=== PATIENT | male | born 1995 | race Caucasian/White ===

== ENCOUNTER 2018-04-17 09:44 | Emergency (ER) | payer MEDICAID ==
[~2018-04-17] VITALS: Ht 185.4 cm; Wt 90.7 kg
[2018-04-17 09:50] VITALS: BP 138/84
[2018-04-17] MEDS ORDERED: LIDOCAINE 1% 500 MG/50 ML VIAL INJ SCH ×2 (10:50→11:35)
[2018-04-17] MEDS ORDERED: LORazepam 1 MG TAB PO ONE (10:50)
[2018-04-17] MEDS ORDERED: LIDOCAINE MPF 1% - 5 mL VIAL 5 ML ONE (11:43)
[2018-04-17 12:34] VITALS: BP 140/84
== END 2018-04-17 12:34 ==
LOC: MED 09:44
DX: S61.411A Laceration without foreign body of right hand, initial encounter (principal); W25.XXXA Contact with sharp glass, initial encounter; Y93.89 Activity, other specified; Y92.89 Other specified places as the place of occurrence of the external cause; Y99.8 Other external cause status
CPT/HCPCS: 12001; 73130; 90471; 90715; 99283; J2001; Q0092

== ENCOUNTER 2018-10-31 21:34 | Emergency (ER) | payer MEDICAID, OTHER ==
[~2018-10-31] VITALS: Ht 185.4 cm; Wt 86.2 kg
[2018-10-31 21:39] VITALS: BP 132/90
--- NOTE | 2018-10-31 21:39 | NUR ---
TO BED # 06 AMBULATORY
--- NOTE | 2018-10-31 21:55 | NUR ---
PT C/O OF HEART PALIPITATIONS. PT STATES "I HAVE BEEN STRESSED OUT ABOUT SCHOOL AND COURT AND I JUST DON'T FEEL RIGHT". PT DENIES ANY PAIN AT THIS TIME. NO MEDICAL HX. SAFETY MEASURES IN PLACE. WAITING FOR MD TO EVALUATE PT.
--- NOTE | 2018-10-31 21:59 | NUR ---
Note dennise in EDM - 10/31/18 at 2201 by [email or web address] PT C/O OF HEART PALIPITATIONS. PT STATES "I HAVE BEEN STRESSED OUT ABOUT SCHOOL AND COURT AND I JUST DON'T FEEL RIGHT". PT DENIES ANY PAIN AT THIS TIME. NO MEDICAL HX. SAFETY MEASURES IN PLACE. WAITING FOR MD TO EVALUATE PT.
--- NOTE | 2018-10-31 22:03 | NUR ---
Dr. Franco examining patient.
[2018-10-31] MEDS ORDERED: LORazepam 1 MG TAB PO ONE (22:05)
--- NOTE | 2018-10-31 22:49 | NUR ---
Patient discharged by Dr. Franco with v/s stable. Pain level 0/10 prior to discharge. Written and verbal after care instructions given and explained. Patient verbalized understanding. Ambulatory with steady gait. All questions addressed prior to discharge. Advised to follow up with PMD.
[2018-10-31 22:51] VITALS: BP 132/90
== END 2018-10-31 22:49 | disposition home or self-care (01) ==
LOC: MED 21:34
DX: R06.4 Hyperventilation (principal); F41.1 Generalized anxiety disorder; G40.909 Epilepsy, unspecified, not intractable, without status epilepticus
CPT/HCPCS: 99284

== ENCOUNTER 2019-01-26 09:41 | Emergency (ER) | payer OTHER ==
[~2019-01-26] VITALS: Ht 185.4 cm; Wt 86.2 kg
[2019-01-26 09:55] VITALS: BP 145/93
[2019-01-26] MEDS ORDERED: DIAZEPAM 5 MG TAB PO ONE (10:50)
[2019-01-26 11:34] VITALS: BP 118/73
== END 2019-01-26 11:15 | disposition home or self-care (01) ==
LOC: MED 09:41
DX: M25.512 Pain in left shoulder (principal); G40.909 Epilepsy, unspecified, not intractable, without status epilepticus
CPT/HCPCS: 99283

== ENCOUNTER 2019-02-05 13:52 | Emergency (ER) | payer OTHER ==
[~2019-02-05] VITALS: Ht 182.9 cm; Wt 86.6 kg
[2019-02-05 13:55] VITALS: BP 153/83
--- NOTE | 2019-02-05 14:11 | NUR ---
PT WALKED TO ROOM 6 IN STEADY GAIT. CO PAIN ON LEFT SHOULDER S/P FALL OFF OF SKITING BARD A MONTH AGO. PAIN STILL EVEN TAKING PRESCRIPED MEDICATION. A/OX3. NO ACUTE DISTRESS. VS STABLE
[2019-02-05] MEDS ORDERED: KETOROLAC 30 MG/ML VIAL IM ONE (14:55)
--- NOTE | 2019-02-05 14:59 | NUR ---
order entry technician at bedside.
--- NOTE | 2019-02-05 15:20 | NUR ---
PT WAS MEDICATED WITH TORADOL IM PER MD ORDER.
--- NOTE | 2019-02-05 15:41 | NUR ---
Patient discharged with v/s stable. Written and verbal after care instructions given and explained. Patient alert, oriented and verbalized understanding of instructions. Ambulatory with to home. All questions addressed prior to discharge. ID band removed. Patient advised to follow up with PMD. Rx of FLEXERIL AND IBUPROFEN given. Patient educated on indication of medication including possible reaction and side effects. Opportunity to ask questions provided and answered. F
[2019-02-05 15:42] VITALS: BP 134/75
== END 2019-02-05 15:41 | disposition home or self-care (01) ==
LOC: MED 13:52
DX: M25.512 Pain in left shoulder (principal); G40.909 Epilepsy, unspecified, not intractable, without status epilepticus
CPT/HCPCS: 73030; 96372; 99283; J1885; Q0092

== ENCOUNTER 2019-04-08 19:36 | Emergency (ER) | payer OTHER ==
[~2019-04-08] VITALS: Ht 185.4 cm; Wt 84.0 kg
[2019-04-08 19:55] VITALS: BP 155/99
--- NOTE | 2019-04-08 20:22 | NUR ---
PT TAKEN TO BED 5
--- NOTE | 2019-04-08 20:40 | NUR ---
X-Ray at bedside.
--- NOTE | 2019-04-08 20:49 | NUR ---
XR AT BEDSIDE.
--- NOTE | 2019-04-08 20:57 | NUR ---
KATIE ROBLES AT BEDSIDE TO EVAL PT.
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
[2019-04-08] MEDS: ACETAMINOPHEN EXTRA STRENGTH 500 MG TAB PO ONE (21:05)
[2019-04-08] MEDS ORDERED: BACITRACIN OINT 500 UNITS/GM PKT TP ONE (21:21)
[2019-04-08] MEDS: BACITRACIN OINT 500 UNITS/GM PKT TP ONE (21:22)
[2019-04-08] MEDS: LIDOCAINE MPF 1% 10 MG/ML VIAL INJ ONE (21:24)
--- NOTE | 2019-04-08 21:24 | NUR ---
PULLED LIDOCAINE FOR PA FOR PROCEDURE BUT KATIE ROBLES SAID NOT INDICATED ANYMORE. WASTED LIDOCAINE AT [facility].
[2019-04-08 21:47] VITALS: BP 155/99
--- NOTE | 2019-04-08 21:47 | NUR ---
Patient discharged with v/s stable. Written and verbal after care instructions given and explained. Patient alert, oriented and verbalized understanding of instructions. Ambulatory with steady gait. All questions addressed prior to discharge. ID band removed. Patient advised to follow up with PMD. Rx of IBUPROFEN AND BACITRACIN given. Patient educated on indication of medication including possible reaction and side effects. Opportunity to ask questions provided and answered.
== END 2019-04-08 21:47 | disposition home or self-care (01) ==
LOC: MED 19:36
DX: S61.300A Unspecified open wound of right index finger with damage to nail, initial encounter (principal); S60.221A Contusion of right hand, initial encounter; S60.511A Abrasion of right hand, initial encounter; V00.131A Fall from skateboard, initial encounter; Y93.89 Activity, other specified; Y92.89 Other specified places as the place of occurrence of the external cause; Y99.8 Other external cause status; Z82.0 Family history of epilepsy and other diseases of the nervous system
CPT/HCPCS: 12001; 73130; 99283; J2001; Q0092

== ENCOUNTER 2019-04-28 17:50 | Emergency (ER) | payer OTHER ==
[~2019-04-28] VITALS: Ht 185.4 cm; Wt 65.8 kg
--- NOTE | 2019-04-28 17:50 | NUR ---
PT BIBA BLS TO ER BED 02
[2019-04-28 18:00] VITALS: BP 116/71
[2019-04-28] MEDS ORDERED: MORPHINE SULFATE 4 MG/ML SYR IM ONE (18:40)
[2019-04-28] MEDS ORDERED: KETOROLAC 30 MG/ML VIAL IM ONE (18:40)
--- NOTE | 2019-04-28 18:45 | NUR ---
PT LYING ON BED, A/OX3. CALLING FRIENDS. NO ACUTE DISTRESS. SPEAKS FULL SENTENCES, FOLLOWS COMMAND, DENIES WORRELL. TRIED TO COLLECT URINE SAMPLE. BUT PT HAS NO URINE.
--- NOTE | 2019-04-28 18:56 | NUR ---
PT WAS MEDICATED WITH PAIN MEDICATION PER MD ORDER.
--- NOTE | 2019-04-28 19:46 | NUR ---
PATIENT ALERT AND ORIENTED, BREATHING EVEN AND UNLABORED, WILL CONTINUE TO MONITOR.
--- NOTE | 2019-04-28 20:45 | NUR ---
PATIENT STATES HE IS UNABLE TO PEE AT THIS TIME
--- NOTE | 2019-04-28 21:00 | NUR ---
PER KATIE BARROW PATIENT DOES NOT NEED URINE BEFORE DISCHARGE
--- NOTE | 2019-04-28 21:11 | NUR ---
CLAVICLE SPLINT WAS PLACED ON PT. PTS PMS WNL.
[2019-04-28 21:25] VITALS: BP 108/74
--- NOTE | 2019-04-28 21:25 | NUR ---
Patient discharged with v/s stable. Written and verbal after care instructions ABOUT CLAVICLE FRACTURE given and explained. Patient alert, oriented and verbalized understanding of instructions. Ambulatory with steady gait. All questions addressed prior to discharge. ID band removed. Patient advised to follow up with PMD. Rx of IBUPROFEN AND TRAMADOL given. Patient educated on indication of medication including possible reaction and side effects. Opportunity to ask questions provided and answered.
== END 2019-04-28 21:25 | disposition home or self-care (01) ==
LOC: MED 17:50
DX: S42.002A Fracture of unspecified part of left clavicle, initial encounter for closed fracture (principal); G40.909 Epilepsy, unspecified, not intractable, without status epilepticus; V89.2XXA Person injured in unspecified motor-vehicle accident, traffic, initial encounter; Y93.89 Activity, other specified; Y92.89 Other specified places as the place of occurrence of the external cause; Y99.8 Other external cause status
CPT/HCPCS: 29105; 71045; 73000; 96372; 99283; J1885; J2270; Q0092

== ENCOUNTER 2019-05-01 19:01 | Emergency (ER) | payer OTHER ==
[~2019-05-01] VITALS: Ht 185.4 cm; Wt 86.2 kg
[2019-05-01 19:15] VITALS: BP 105/58
--- NOTE | 2019-05-01 21:53 | NUR ---
PATIENT LEFT WITHOUT BEING SEEN BY DR. PARK. NO FURTHER CARE PROVIDED FOR PATIENT.
== END 2019-05-01 21:53 | disposition left against medical advice (07) ==
LOC: MED 19:01
DX: R10.9 Unspecified abdominal pain (principal); R07.9 Chest pain, unspecified; Z53.21 Procedure and treatment not carried out due to patient leaving prior to being seen by health care provider; V89.2XXA Person injured in unspecified motor-vehicle accident, traffic, initial encounter; Y93.89 Activity, other specified; Y92.410 Unspecified street and highway as the place of occurrence of the external cause; Y99.8 Other external cause status

== ENCOUNTER 2019-05-02 09:27 | Emergency (ER) | payer OTHER ==
[~2019-05-02] VITALS: Ht 185.4 cm; Wt 84.8 kg
--- NOTE | 2019-05-02 09:34 | NUR ---
PT AMBULATED TO BED 11.
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
[2019-05-02 09:38] VITALS: BP 116/65
[2019-05-02] MEDS ORDERED: MORPHINE SULFATE 4 MG/ML SYR IM ONE (09:55)
[2019-05-02 11:32] VITALS: BP 116/65
--- NOTE | 2019-05-02 11:32 | NUR ---
Patient discharged with v/s stable. Written and verbal after care instructions given and explained. Patient alert, oriented and verbalized understanding of instructions. Ambulatory with steady gait. All questions addressed prior to discharge. ID band removed. Patient advised to follow up with PMD. Rx of MOTRIN, NORCO, ATARAX given. Patient educated on indication of medication including possible reaction and side effects. Opportunity to ask questions provided and answered.
== END 2019-05-02 11:32 | disposition home or self-care (01) ==
LOC: MED 09:27
DX: S42.009A Fracture of unspecified part of unspecified clavicle, initial encounter for closed fracture (principal); X58.XXXA Exposure to other specified factors, initial encounter; Y93.89 Activity, other specified; Y92.89 Other specified places as the place of occurrence of the external cause; Y99.8 Other external cause status
CPT/HCPCS: 96372; 99283; J2270

== ENCOUNTER 2019-05-07 20:13 | Emergency (ER) | payer OTHER ==
[~2019-05-07] VITALS: Ht 182.9 cm; Wt 85.7 kg
[2019-05-07 20:32] VITALS: BP 134/71
--- NOTE | 2019-05-07 20:32 | NUR ---
PT TAKEN BACK TO LOBBY
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
[2019-05-07 21:21] VITALS: BP 134/71
--- NOTE | 2019-05-07 21:21 | NUR ---
Patient discharged with v/s stable. Written and verbal after care instructions given ABOUT CLAVICLE FRACTURE and explained. Patient verbalized understanding. Ambulatory with steady gait. All questions addressed prior to discharge. Advised to follow up with PMD. PATIENT TO BE PICKED UP BY FATHER
--- NOTE | 2019-05-07 21:21 | NUR ---
PLACED CLAVICAL STRAP ON PT AND ALSO PLACED A ARM SLING ON PT'S LEFT ARM
== END 2019-05-07 21:21 | disposition home or self-care (01) ==
LOC: MED 20:13
DX: S42.002A Fracture of unspecified part of left clavicle, initial encounter for closed fracture (principal); G40.909 Epilepsy, unspecified, not intractable, without status epilepticus; V89.2XXA Person injured in unspecified motor-vehicle accident, traffic, initial encounter; Y93.89 Activity, other specified; Y92.89 Other specified places as the place of occurrence of the external cause; Y99.8 Other external cause status
CPT/HCPCS: 99282

== ENCOUNTER 2021-01-14 14:47 | Emergency (ER) | payer OTHER, SELFPAY ==
[~2021-01-14] VITALS: Ht 185.4 cm; Wt 87.1 kg
[~2021-01-14 14:47] MED LIST: FOLI1TAB90 PO; LIB25 PO; MULT-405 PO; THIA-34 PO
[2021-01-14 15:02] VITALS: BP 154/109
--- NOTE | 2021-01-14 15:06 | NUR ---
PT TO WAIT IN LOBBY.
--- NOTE | 2021-01-14 15:14 | NUR ---
PT TAKEN TO [place] iD[facility]on
--- NOTE | 2021-01-14 15:17 | NUR ---
DR. LEDEZMA WITH PT FOR FURTHER EVALUATION.
--- NOTE | 2021-01-14 15:30 | NUR ---
PT TAKEN TO RADIOLOGY VIA WHEELCHAIR
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
[2021-01-14] MEDS: KETOROLAC 60 MG/2 ML VIAL IM ONE (15:36)
[2021-01-14] MEDS ORDERED: IBUP-2213 PO (16:11)
[2021-01-14] MEDS ORDERED: ATA25 PO (16:11)
[2021-01-14] MEDS ORDERED: ACET-8386 PO (16:11)
--- NOTE | 2021-01-14 16:30 | NUR ---
PT PLACED IN RIGHT FABRICATED ULNAR GUTTER SPLINT WITH 4" ORTHO GLASS. CMS WNL NEFORE AND AFTER.
[2021-01-14 16:38] VITALS: BP 154/109
--- NOTE | 2021-01-14 16:39 | NUR ---
Patient discharged with v/s stable. Written and verbal after care instructions given and explained. Patient alert, oriented and verbalized understanding of instructions. Ambulatory with steady gait. All questions addressed prior to discharge. ID band removed. Patient advised to follow up with PMD. Rx of NORCO/ATARAX given. Patient educated on indication of medication including possible reaction and side effects. Opportunity to ask questions provided and answered.
== END 2021-01-14 16:39 | disposition home or self-care (01) ==
LOC: MED 14:47
DX: S62.394A Other fracture of fourth metacarpal bone, right hand, initial encounter for closed fracture (principal); F41.9 Anxiety disorder, unspecified; Z79.899 Other long term (current) drug therapy; Z98.890 Other specified postprocedural states; V00.131A Fall from skateboard, initial encounter; Y93.89 Activity, other specified; Y92.89 Other specified places as the place of occurrence of the external cause; Y99.8 Other external cause status
CPT/HCPCS: 29125; 73130; 96372; 99283; J1885

== ENCOUNTER 2021-01-17 05:50 | Inpatient (IN) | payer OTHER, SELFPAY ==
[2021-01-17] VITALS (16 sets, daily range): BP systolic 100–150; BP diastolic 59–120
[~2021-01-17] VITALS: Ht 185.4 cm; Wt 79.8 kg
[~2021-01-17 05:50] MED LIST changes: +ACET-8386 PO; +ATA25 PO; +IBUP-2213 PO
--- NOTE | 2021-01-17 06:03 | NUR ---
TO BED # 02 AMBULATORY
--- NOTE | 2021-01-17 06:10 | NUR ---
SEEN AND EXAMINED BY RADHA WITH ORDERS AND CARRIED OUT.
[2021-01-17] MEDS ORDERED: OLANZapine 5 MG ODT PO ONE (06:15)
--- NOTE | 2021-01-17 06:20 | NUR ---
MEDICATED PER ERMDS ORDER, TOLERATED WELL.
[2021-01-17 06:41] LABS: BARBITURATE, URINE NEGATIVE ng/ml (NEG <=200)
[2021-01-17 06:42] LABS: BENZODIAZEPINE, URINE NEGATIVE ng/mL (NEG <=200); CANNABINOID, URINE POSITIVE ng/mL (NEG <=50); COCAINE, URINE NEGATIVE ng/mL (NEG <=300); OPIATE, URINE POSITIVE ng/mL (NEG <=2000); PHENCYCLIDINE SCREEN,URINE NEGATIVE ng/mL (NEG <=25)
--- NOTE | 2021-01-17 07:23 | NUR ---
RECEIVED REPORT FROM LINAD URIARTE. TRANSFER OF CARE AT THIS TIME.
[2021-01-17] MEDS ORDERED: NACL 0.9% 1,000 ML IV ONE (07:25)
[2021-01-17] MEDS ORDERED: LORazepam 2 MG/ML VIAL IVP ONE ×2 (07:25→10:20)
--- NOTE | 2021-01-17 07:41 | NUR ---
IV ESTABLISHED TO LEFT AC 20G, GOOD BLOOD RETURN, BLOOD COLLECTED, WALKED TO LAB.
--- NOTE | 2021-01-17 07:52 | NUR ---
PT RESTING, HOB LOWERED FOR COMFORT, PLACED ON GAUGE CHECKER, PROVIDED WARM BLANKET, VSS, WILL CONTINUE TO MONITOR.
--- NOTE | 2021-01-17 08:13 | NUR ---
PT STATES +HALLUCINATIONS AND VOICES AROUND HIM. MADE AWARE.
[2021-01-17 08:19] LABS: BASOPHILS # (AUTO) 0.1 K/uL (0.00-0.22); BASOPHILS % (AUTO) 1.1 % (0.0-2.0); EOSINOPHILS % (AUTO) 0.1 % (0.0-4.0); HEMATOCRIT 46.1 % (36-52); LYMPHOCYTES # (AUTO) 0.7 K/uL (2.0-11.5); LYMPHOCYTES % (AUTO) 10.7 % (20.5-51.1); MEAN CORPUSCULAR HEMOGLOBIN 35 pg (27-31); MEAN CORPUSCULAR HGB CONC 35 g/dL (33-37); MEAN CORPUSCULAR VOLUME 100.7 fL (80-94); MONOCYTES # (AUTO) 0.7 K/uL (0.8-1.0); MONOCYTES % (AUTO) 10.2 % (1.7-9.3); NEUTROPHILS % (AUTO) 77.9 % (42.2-75.2); PLATELET COUNT (AUTO) 194 K/uL (140-450); RED BLOOD CELL COUNT(AUTO) 4.58 MIL/uL (4.20-6.10); WHITE BLOOD COUNT (AUTO) 6.4 K/uL (4.8-10.8)
--- NOTE | 2021-01-17 08:21 | NUR ---
DR. ESTEBAN AT PT BEDSIDE FOR FURTHER EVALUATION.
[2021-01-17 08:28] LABS: ALBUMIN 4.3 g/dL (3.4-5.0); ANION GAP 13.3 (8-16); ASPARTATE AMINOTRANSFERASE 36 U/L (15-37); CARBON DIOXIDE 27.6 mmol/L (21-32); CHLORIDE 102 mmol/L (98-107); CREATININE 0.8 mg/dL (0.6-1.3); GFR ARICAN-AMERICAN 153 mL/min (>90); GLUCOSE 95 mg/dL (74-106); SODIUM SERUM 140 mmol/L (136-145); TOTAL BILIRUBIN 0.7 mg/dL (0.0-1.0); UREA NITROGEN, BLOOD 6 mg/dL (7-18)
[2021-01-17] MEDS ORDERED: PHENobarbital 65 MG/ML VIAL IV ONE ×3 (08:30→10:40)
--- NOTE | 2021-01-17 08:34 | NUR ---
PT STATES +HALLUCINATIONS AND VOICES AROUND HIM. MADE AWARE.
--- NOTE | 2021-01-17 08:37 | NUR ---
PT PULLED IV, BLEEDING ON BED AND SHEETS, DIRECT PRESSURE APPLIED, ESTABLISHED NEW IV TO RIGHT AC 20G.
--- NOTE | 2021-01-17 08:40 | NUR ---
DR. ESTEBAN AT PT BEDSIDE FOR FURTHER EVALUATION.
[2021-01-17] MEDS ORDERED: PHENobarbital 130 MG/ML VIAL ONE (08:44)
--- NOTE | 2021-01-17 08:44 | NUR ---
PT AMBULATED TO RESTROOM WITH A STEADY GAIT.
--- NOTE | 2021-01-17 08:47 | NUR ---
PT AMBULATED TO ER BED 2 WITH A STEADY GAIT. SEIZURE PRECAUTIONS IN PLACE.
[2021-01-17 08:59] LABS: ACETAMINOPHEN < 0.5 ug/ml (10-30); POTASSIUM 2.9 mmol/L (3.5-5.1); SALICYLATE < 2.8 mg/dL (2.8-20.0)
[2021-01-17] MEDS ORDERED: NACL 0.9% IV ONE (09:20)
[2021-01-17] MEDS ORDERED: PHENOBARBITAL IV ONE (09:20)
--- NOTE | 2021-01-17 09:41 | NUR ---
DR. ESTEBAN AT PT BEDSIDE FOR FURTHER EVALUATION.
[2021-01-17] MEDS ORDERED: HALOPERIDOL IM 5 MG/ML VIAL IVP ONE (09:45)
--- NOTE | 2021-01-17 09:58 | NUR ---
PT IN BED, AWAKE ALERT, CALM AND COOPERATIVE. VSS, WILL CONTINUE TO MONITOR.
--- NOTE | 2021-01-17 10:08 | NUR ---
MOVED TO ER BED 4
[2021-01-17] MEDS ORDERED: KETAMINE 10 MG/ML UD SYR **ER IVP ONE ×4 (10:15→11:06)
[2021-01-17] MEDS ORDERED: DEXMEDETOMIDINE HCL 400 MCG in NACL 0.9% 96 ML IV STA (10:26)
[2021-01-17] MEDS ORDERED: MIDAZOLAM 5 MG/5 ML VIAL IV ONE (10:50)
[2021-01-17] MEDS ORDERED: MIDAZOLAM 5 MG/1 ML VIAL ONE (10:57)
--- NOTE | 2021-01-17 11:12 | NUR ---
PER DR. ESTEBAN PT TO BE INTUBATED STAT, ORDERED 120MG SUCC IVP, 20MG ETOMIDATE IVP. 1120-RX PULLED, INTUBATION KIT PULLED 1123-PRECEDEX ORDERED FOR PT TO START AT 0.4MCG/KG/HR 1127-SUCC AND ETOMIDATE MEDICATIONS IVP, PT INTUBATED AT 1128. ET TUBE IN 24 AT THE LIP 8 INCH TUBE AND VERIFIED BY MD AND RT. 1130-PROPOFOL DRIP STARTED. 1138-OG TUBE AND ARNOLD IN.
[2021-01-17] MEDS ORDERED: INTUBATION KIT MC ONE (11:14)
[2021-01-17] MEDS ORDERED: SUCCINYLCHOLINE CHLORIDE 200 MG/10 ML VIAL IVP ONE ×2 (11:15→12:00)
[2021-01-17] MEDS ORDERED: ETOMIDATE 20 MG/10 ML VIAL IVP ONE ×2 (11:15→12:00)
[2021-01-17] MEDS ORDERED: PROPOFOL 1000 MG/100 ML PREMIX 100 ML IV ONE (11:15)
[2021-01-17] MEDS ORDERED: fentaNYL citrate 1 MG in NACL 0.9% 80 ML IV STA (11:16)
--- NOTE | 2021-01-17 11:20 | NUR ---
ADMITTING DX: HALLUCINATIONS MEDICATION CARE MANAGER CALLED TO ED-4 FOR INTUBATION FOR AIRWAY PROTECTION
--- NOTE | 2021-01-17 11:25 | NUR ---
USING A GLIDESCOPE PATIENT SUCCESSFULLY INTUBATED BY DR. MARIANNA GARCIA WITH AN ENDOTRACHEAL TUBE #8.0 SECURED AT 24cm TEETH/GUM LINE PLACEMENT CONFIRMATION CO2 DETECTOR (YELLOW); AUSCULTATION BY RADHA TO THE BILATERAL LUNG SCHWAB APEX TO MID GOOD AERATION THROUGHOUT; AUSCULTATION TO ABDOMINAL REGION CHEST XRAY TO FOLLOW
[2021-01-17] MEDS ORDERED: PROPOFOL 200 MG/20 ML VIAL IV ONE (11:27)
--- NOTE | 2021-01-17 11:33 | NUR ---
ENDOTRACHEAL TUBE PLACEMENT CONFIRMED VIA CHEST XRAY BY DR. MARIANNA GARCIA "GOOD PLACEMENT"
[2021-01-17] MEDS ORDERED: MORPHINE SULFATE 2 MG/ML SYR IVP PRN (11:35)
[2021-01-17] MEDS ORDERED: ONDANSETRON 4 MG/2 ML VIAL IVP PRN ×2 (11:35→13:35)
--- NOTE | 2021-01-17 11:35 | NUR ---
PLACED ON A Knowledge Delivery SystemsAPE VENTILATOR PLUGGED INTO RED OUTLET TOLERATING WELL WITHOUT ADVERSE REACTIONS NOTED VENTILATOR SETTINGS: MODE PRVC RATE 16 VT 550ml (7ml/kg IBW) PEEP 5cmH2O FIO2 70% REVIEWED BY DR. MARIANNA ESTEBAN ERMD; ABG AFTER 1 HOUR ON VENTILATOR
--- NOTE | 2021-01-17 11:41 | NUR ---
BOOK COVERER AT [facility] FOR FURTHER EVALUATION.
--- NOTE | 2021-01-17 11:53 | NUR ---
GAVE REPORT TO LINDA MACHADO FOR PENDING ADMISSION TO ICU BED 5.
--- NOTE | 2021-01-17 12:07 | NUR ---
Patient will be admitted to care of DR. MENDEZ. Admited to ICU. Will go to room 5. Belongings list completed. Report to LINDA MACHADO.
--- NOTE | 2021-01-17 12:15 | NUR ---
pt arrived from er
[2021-01-17 12:21] LABS: ANION GAP 15.1 (8-16); CARBON DIOXIDE 23.3 mmol/L (21-32); CREATININE 0.8 mg/dL (0.6-1.3); POTASSIUM 3.4 mmol/L (3.5-5.1)
--- NOTE | 2021-01-17 12:44 | NUR ---
PT'S BROTHER SANJIV MORAN CALLED [phone], NO ANSWER, LEFT MESSAGE TO CALL BACK
[2021-01-17] MEDS ORDERED: MAG SULF 2000 MG/WATER PREMIX 50 ML IV PRN (13:35)
[2021-01-17] MEDS ORDERED: ACETAMINOPHEN 650 MG SUPP RC PRN (13:35)
[2021-01-17] MEDS ORDERED: SODIUM PHOSPHATE 118 ML ENEM RC PRN (13:35)
[2021-01-17] MEDS ORDERED: MAGNESIUM OXIDE 400 MG TAB PO PRN (13:35)
[2021-01-17] MEDS ORDERED: ALUMINUM HYD/MAG/SIMETHICONE 30 ML UDC PO PRN (13:35)
[2021-01-17] MEDS ORDERED: HYDROcodone/APAP 5/325 MG 1 TAB TAB PO PRN ×2 (13:35)
[2021-01-17] MEDS ORDERED: diphenhydrAMINE 50 MG/ML VIAL IVP PRN (13:35)
[2021-01-17] MEDS ORDERED: IPRATROPIUM 0.02% 0.5 MG/2.5 ML NEBU INH PRN (13:35)
[2021-01-17] MEDS ORDERED: ZOLPIDEM 5 MG TAB PO PRN (13:35)
[2021-01-17] MEDS ORDERED: bisacodyL 10 MG SUPP RC PRN (13:35)
[2021-01-17] MEDS ORDERED: LORazepam 2 MG/ML VIAL IVP PRN (13:35)
[2021-01-17] MEDS ORDERED: ALBUTEROL 0.083% 2.5 MG/3 ML NEBU INH PRN (13:35)
[2021-01-17] MEDS ORDERED: DOCUSATE SODIUM 250 MG GELCAP PO PRN (13:35)
[2021-01-17] MEDS ORDERED: guaiFENesin DM 200/20 MG-10 ML 10 ML UDC PO PRN (13:35)
[2021-01-17] MEDS ORDERED: ACETAMINOPHEN 325 MG TAB PO PRN (13:35)
[2021-01-17] MEDS ORDERED: CLONIDINE HYDROCHLORIDE 0.1 MG TAB PO PRN (13:35)
--- NOTE | 2021-01-17 13:45 | NUR ---
DR RICHTER AT BEDSIDE
[2021-01-17] MEDS: PROPOFOL 1000 MG/100 ML PREMIX 100 ML IV PRN ×3 (14:28→21:57)
[2021-01-17] MEDS: MULTIVITAMIN-12 10 ML, THIAMINE 100 MG, FOLIC ACID 1 MG, MAGNESIUM SULFATE 50% 2,000 MG... IV SCH ×5 (14:33)
[2021-01-17] MEDS: LORazepam 2 MG/ML VIAL IVP PRN ×2 (17:03→23:48)
--- NOTE | 2021-01-17 17:03 | NUR ---
PT AGITATED, INTERMITTENTLY THRASHING AROUND IN BED, PRN ATIVAN GIVEN
[2021-01-17] MEDS: POTASSIUM CHLORIDE 10 MEQ TABER PO PRN (17:20)
--- NOTE | 2021-01-17 19:39 | NUR ---
RECIEVED BEDSIDE ENDORSEMENT FROM DAY SHIFT RN, PT LYING IN BED, RASS -3, SR ON MONITOR, VS WNR, AFEBRILE, ETT TO VENT ACPRVC FIO2 30% TV 500 RATE 14 PEEP 5, OGT IN PLACE CLAMPED AND CHECKED FOR PATENTENCY FLUSHED AND CHECKED FOR PLACEMENT, RAC 20 G PIV INFUSING PROPOFOL @ 45MCG/KG/MIN, RFA 18 G PIV INFUSING MULT V @ 100ML/HR, RH 20 G PIV SALINE LOCKED, FC IN PLACE DRAINING VIA GRAVITY, SUICIDE PRECAUTION IN PLACE, PENNY SOFT WRIST RESTRAINTS IN PLACE AND RELEASED TO CHECK FOR INJURY, NO SIGNS OF ACUTE DISTRESS, SAFETY MEASURES IN PLACE, WILL CONTINUE WITH CURRENT POC
--- NOTE | 2021-01-17 22:07 | NUR ---
VAP ORAL CARE GIVEN, REPOSITIONED PT, NO SIGNS OF ACUTE DISTRESS
[2021-01-17] MEDS ORDERED: MULTIVITAMIN-12 10 ML VIAL IV ONE (22:16)
[2021-01-17] MEDS ORDERED: THIAMINE 200 MG/2 ML VIAL ONE (22:17)
[2021-01-17] MEDS ORDERED: FOLIC ACID 5 MG/ML SYR ONE (22:18)
--- NOTE | 2021-01-17 23:48 | NUR ---
PT AGITATED, ADMINISTERED ATIVAN PRN
[2021-01-18] VITALS (28 sets, daily range): BP systolic 76–126; BP diastolic 41–83
[2021-01-18] MEDS: MULTIVITAMIN-12 10 ML, THIAMINE 100 MG, FOLIC ACID 1 MG, MAGNESIUM SULFATE 50% 2,000 MG... IV SCH ×15 (01:09→22:36)
--- NOTE | 2021-01-18 02:13 | NUR ---
VAP ORAL CARE GIVEN, REPOSITIONED PT, NO SIGNS OF ACUTE DISTRESS
--- NOTE | 2021-01-18 04:19 | NUR ---
MORNING CARE PROVIDED, REPOSITIONED PT, VAP ORAL CARE GIVEN, NO SIGNS OF ACUTE DISTRESS
[2021-01-18] MEDS: PROPOFOL 1000 MG/100 ML PREMIX 100 ML IV PRN ×4 (04:59→23:30)
[2021-01-18 05:31] LABS: BASOPHILS % (AUTO) 0.5 % (0.0-2.0); EOSINOPHILS # (AUTO) 0.1 K/uL (0-0.4); EOSINOPHILS % (AUTO) 1.6 % (0.0-4.0); HEMATOCRIT 42.4 % (36-52); HEMOGLOBIN 14.3 g/dL (12.0-18.0); LYMPHOCYTES # (AUTO) 1.6 K/uL (2.0-11.5); LYMPHOCYTES % (AUTO) 19.6 % (20.5-51.1); MEAN CORPUSCULAR HEMOGLOBIN 35 pg (27-31); MEAN CORPUSCULAR HGB CONC 34 g/dL (33-37); MEAN CORPUSCULAR VOLUME 102.9 fL (80-94); MONOCYTES # (AUTO) 1.3 K/uL (0.8-1.0); MONOCYTES % (AUTO) 15.9 % (1.7-9.3); NEUTROPHILS % (AUTO) 62.4 % (42.2-75.2); PLATELET COUNT (AUTO) 161 K/uL (140-450); RED BLOOD CELL COUNT(AUTO) 4.12 MIL/uL (4.20-6.10); RED CELL DISTRIBUTION WIDTH 13.3 % (11.6-13.7); WHITE BLOOD COUNT (AUTO) 8.1 K/uL (4.8-10.8)
[2021-01-18 06:40] LABS: ALBUMIN 3.4 g/dL (3.4-5.0); CARBON DIOXIDE 27.1 mmol/L (21-32); CREATININE 0.7 mg/dL (0.6-1.3); MAGNESIUM 2.6 mg/dL (1.8-2.4); PHOSPHORUS 3.8 mg/dL (2.5-4.9); POTASSIUM 3.1 mmol/L (3.5-5.1); TOTAL BILIRUBIN 0.5 mg/dL (0.0-1.0)
[2021-01-18] MEDS: POTASSIUM CHLORIDE 10 MEQ TABER PO PRN (06:49)
--- NOTE | 2021-01-18 06:57 | NUR ---
K 3.1, ADMINISTERED K DUR PRN
--- NOTE | 2021-01-18 07:18 | NUR ---
ENDORSED TO DAY SHIFT RN FOR CONTINUITY OF CARE
--- NOTE | 2021-01-18 07:30 | NUR ---
RECIEVED BEDSIDE ENDORSEMENT FROM MORNING NANNY RN, PT LYING IN BED, RASS -3, SR ON MONITOR, VS WNR, AFEBRILE, ETT TO VENT ACPRVC FIO2 25% TV 500 RATE 14 PEEP 5, RESP EVEN WITH BILAT CHEST RISE AND FALL, SKIN WARM DRY COLOR WNL, CAP REFILL <3, OGT IN PLACE CLAMPED AND CHECKED FOR PATENTENCY FLUSHED AND CHECKED FOR PLACEMENT, RAC 20 G PIV INFUSING PROPOFOL @ 45MCG/KG/MIN, RFA 18 G PIV INFUSING MULT V @ 100ML/HR, RH 20 G PIV SALINE LOCKED, FC IN PLACE DRAINING VIA GRAVITY, SEIZURE PRECAUTION IN PLACE, PENNY SOFT WRIST RESTRAINTS IN PLACE AND RELEASED TO CHECK FOR INJURY, NO SIGNS OF ACUTE DISTRESS, SAFETY MEASURES IN PLACE, WILL CONTINUE WITH CURRENT POC. DRY WT 79KG
[2021-01-18] MEDS: LORazepam 2 MG/ML VIAL IVP PRN ×2 (08:12→17:44)
--- NOTE | 2021-01-18 08:12 | NUR ---
PT AGITATED, TRYING TO SIT UP, PRN ATIVAN GIVEN
[2021-01-18] MEDS: MORPHINE SULFATE 2 MG/ML SYR IVP PRN ×2 (08:55→23:21)
[2021-01-18] MEDS: ENOXAPARIN 40 MG/0.4 ML SYR SUBQ SCH (08:56)
[2021-01-18] MEDS: PANTOPRAZOLE 40 MG INJ VIAL IVP SCH (08:56)
--- NOTE | 2021-01-18 09:11 | NUR ---
PATIENT HAS BEEN SCREENED AND CATEGORIZED HIGH NUTRITION RISK. PATIENT WILL BE SEEN WITHIN 1-2 DAYS OF ADMISSION. 01/18/[address]
--- NOTE | 2021-01-18 10:07 | NUR ---
DR RICHTER AT BEDSIDE
[2021-01-18] MEDS: DEXMEDETOMIDINE HCL 400 MCG in NACL 0.9% 96 ML IV PRN (11:54)
--- NOTE | 2021-01-18 11:55 | NUR ---
PRECEDEX DRIP STARTED PER ORDER
--- NOTE | 2021-01-18 13:50 | NUR ---
01/18/21 RD INITIAL ASSESSMENT COMPLETED PLEASE REFER TO NUTRITION ASSESSMENT UNDER CARE ACTIVITY FOR ESTIMATED NUTRITIONAL NEEDS. 1. RECOMMEND JEVITY 1.2 @ 70 ML/HR; START AT 30 ML/HR ADVANCE BY 10 ML/HR Q4H -THIS WILL PROVIDE 2016 KCAL/DAY AND 93 GM OF PROTEIN/DAY 2. RECOMMEND FREE WATER FLUSH OF 50 ML Q4H 3. IF/WHEN PT IS EXTUBATED, RECOMMEND SWALLOW EVALUATION TO ADVANCE TO PO DIET 4. RD TO FOLLOW-UP 2-3 DAYS, HIGH RISK MELINDA MOORE RD
--- NOTE | 2021-01-18 15:40 | NUR ---
DC PLANN[age] YRS OLD MALE PATIENT WAS ADMITTED FROM HOME WITH A DX OF ALCOHOL WITHDRAWAL. PT HAS A HX OF ALCOHOL ABUSE. PT INTUBATED DUE TO SEVER DELIRIUM TREMENS ON PRECEDEX DRIP. CONSULTED WITH PULMO. DC PLAN PER PT RESPOND TO THE TREATMENT.
--- NOTE | 2021-01-18 15:50 | NUR ---
PT QUIET SEDATED TO RASS -3, NO DISTRESS NOTED
[2021-01-18 16:06] LABS: CREATINE KINASE MB 16.9 ng/mL (0-3.6)
--- NOTE | 2021-01-18 17:42 | NUR ---
PT NOT IN ANY DISTRESS AT THIS TIME. ETT SECURE WITH A PATENT AIRWAY. VENT ALARMS ON AND FUNCTIONING.
--- NOTE | 2021-01-18 17:54 | NUR ---
PT AGITATED AFTER POSITION CHANGE AND PM CARE, ATIVAN GIVEN PER ORDER
--- NOTE | 2021-01-18 19:15 | NUR ---
RECEIVED PATIENT FROM AM SHIFT NURSE. PATIENT AWAKE AND AGITATED. ETT TO VENT. RESPIRATIONS EVEN, UNLABORED. NO S/S RESPIRATORY DISTRESS. OGT NOTED. S1/S2 AUSCULTATED. FLACC 0. BILATERAL WRIST RESTRAINTS IN PLACE. NO INJURY TO PATIENT. SKIN WARM, DRY. IV SITE TO RIGHT AC 20G PATENT/INTACT, INFUSING PROPOFOL AND PRECEDEX. IV SITE TO RIGHT FOREARM 18G PATENT/INTACT, INFUSING FLUIDS WELL. SALINE LOCK TO RIGHT HAND 20G PATENT/INTACT. ABDOMEN SOFT, NONTENDER, NONDISTENDED. BOWEL SOUNDS ACTIVE x4 QUADRANTS. PATIENT STARTED ON ENTERAL FEEDING. ARNOLD CATHETER PATENT WITH GREEN URINE DRAINING TO GRAVITY. PLAN OF CARE DISCUSSED. SAFETY PRECAUTIONS IN PLACE.
--- NOTE | 2021-01-18 19:47 | NUR ---
PT RECEIVED ON PRVC 500 +5 f14 25% W/ 8 ETT SECURED @ 24CM VENT IS PLUGGED INTO RED OUTLET W/ ALARMS ON AND AUDIBLE AND AMBU AT BEDSIDE WILL CONTINUE TO MONITOR
--- NOTE | 2021-01-18 21:30 | NUR ---
DUE MEDS GIVEN. NO S/S RESPIRATORY DISTRESS. FLACC 0. PATIENT CLEAN/DRY.
[2021-01-18] MEDS ORDERED: THIAMINE 200 MG/2 ML VIAL ONE (21:42)
[2021-01-18] MEDS ORDERED: MULTIVITAMIN-12 10 ML VIAL IV ONE (21:42)
[2021-01-18] MEDS ORDERED: FOLIC ACID 5 MG/ML SYR ONE (21:42)
--- NOTE | 2021-01-18 23:30 | NUR ---
PATIENT IS EXTREMELY AGITATED AND ATTEMPTING TO PULL OUT ETT. TITRATED MEDICATION ORDERED. NO S/S RESPIRATORY DISTRESS. PATIENT CLEAN/DRY. SAFETY PRECAUTIONS IN PLACE. CLOSE MONITORING BY ALL STAFF.
[2021-01-19] VITALS (31 sets, daily range): BP systolic 98–138; BP diastolic 58–96
--- NOTE | 2021-01-19 01:00 | NUR ---
VAP ORAL CARE RENDERED.
--- NOTE | 2021-01-19 03:45 | NUR ---
PATIENT TURNED AND REPOSITIONED. NO S/S RESPIRATORY DISTRESS. FLACC 0. PATIENT CLEAN/DRY. SAFETY PRECAUTIONS IN PLACE.
[2021-01-19] MEDS: PROPOFOL 1000 MG/100 ML PREMIX 100 ML IV PRN ×2 (04:40→20:06)
--- NOTE | 2021-01-19 05:22 | NUR ---
ALL NEEDS ANTICIPATED AND MET. PATIENT RESTING COMFORTABLY IN BED. NO S/S RESPIRATORY DISTRESS. FLACC 0. PATIENT CLEAN/DRY.
[2021-01-19 06:09] LABS: BASOPHILS % (AUTO) 0.4 % (0.0-2.0); EOSINOPHILS # (AUTO) 0.1 K/uL (0-0.4); HEMATOCRIT 39.6 % (36-52); HEMOGLOBIN 13.5 g/dL (12.0-18.0); LYMPHOCYTES # (AUTO) 1.1 K/uL (2.0-11.5); LYMPHOCYTES % (AUTO) 10.1 % (20.5-51.1); MEAN CORPUSCULAR HEMOGLOBIN 35 pg (27-31); MEAN CORPUSCULAR HGB CONC 34 g/dL (33-37); MEAN CORPUSCULAR VOLUME 102.4 fL (80-94); MONOCYTES # (AUTO) 1.3 K/uL (0.8-1.0); MONOCYTES % (AUTO) 11.7 % (1.7-9.3); NEUTROPHILS # (AUTO) 8.3 K/uL (1.8-7.7); NEUTROPHILS % (AUTO) 76.8 % (42.2-75.2); PLATELET COUNT (AUTO) 150 K/uL (140-450); RED BLOOD CELL COUNT(AUTO) 3.86 MIL/uL (4.20-6.10); RED CELL DISTRIBUTION WIDTH 13.1 % (11.6-13.7); WHITE BLOOD COUNT (AUTO) 10.8 K/uL (4.8-10.8)
[2021-01-19 06:12] LABS: ANION GAP 12.2 (8-16); CARBON DIOXIDE 26.5 mmol/L (21-32); CREATININE 0.8 mg/dL (0.6-1.3); POTASSIUM 3.7 mmol/L (3.5-5.1); TOTAL BILIRUBIN 0.5 mg/dL (0.0-1.0)
--- NOTE | 2021-01-19 07:27 | NUR ---
ENDORSED TO AM SHIFT NURSE FOR CONTINUITY OF CARE.
[2021-01-19] MEDS: LORazepam 2 MG/ML VIAL IVP PRN ×2 (08:09→20:53)
[2021-01-19] MEDS: ENOXAPARIN 40 MG/0.4 ML SYR SUBQ SCH (08:14)
[2021-01-19] MEDS: PANTOPRAZOLE 40 MG INJ VIAL IVP SCH (08:15)
--- NOTE | 2021-01-19 09:51 | NUR ---
BEDSIDE STATES FOR PT TO STAY SEDATED AND WILL GO DAY BY DAY BASIS ON PT QUALIFYING FOR SBT. AT THIS TIME TO KEEP ON PRVC.
--- NOTE | 2021-01-19 10:00 | NUR ---
NEELAM MCNAMARA AT BED SIDE, ORDER RECEIVED. STATE THAT PT. IS NOT READY TO INTUBATE YET AT YHIS TIME.
--- NOTE | 2021-01-19 10:15 | NUR ---
DR. SANFORD AT BED SIDE NO ORDER RECEIVED.
[2021-01-19] MEDS: DEXMEDETOMIDINE HCL 400 MCG in NACL 0.9% 96 ML IV PRN ×2 (11:54→21:45)
--- NOTE | 2021-01-19 16:46 | NUR ---
PT REMAINS ON DOCUMENTED VENT SETTINGS. PT NOT IN ANY DISTRESS AT THIS TIME. ETT IS SECURE WITH A PATENT AIRWAY. VENT ALARMS ON AND FUNCTIONING.
--- NOTE | 2021-01-19 17:30 | NUR ---
PT AWAKE GETTING AGITATED BECAME COMBATIVE TRY TO HIT THE STAFFS ATIVAN GAVE ORDER.ED AND INCREASED PROPOFOL AND PRECEDEX PROTOCAL,
--- NOTE | 2021-01-19 19:30 | NUR ---
REECEIVED PATIENT ON BED WITH HOB ELEVATED TO 30 DEGREE, ORALLY INTUBATED AND VENTILATED AT 25 % FIO2; SEDATED WITH PROPOFOL DRIP AT 35 MCG/KG/MIN AND WITH PRECEDEX DRIP AT 1 MCG/KG/HR VIA G20 IV CANNULA ON RIGHT AC, TO KEEP RASS-3. AND WITH IV BANANA BAG AT 100 ML/HR VIA G20 IV CANNULA ON RIGHT HAND; INTACT. ABDOMEN IS SOFT, HYPOACTIVE BOWEL SOUNDS; WITH CONTINOUS TUBE FEEDING JEVITY 1.2 AT 30 ML/HR VIA OGT; TOLERATED. WITH ARNOLD CATH IN SITU TO GRAVITY DRAINAGE BAG DRAINING CLEAR YELLOW URINE OUTPUT; PATENT AND INTACT.
--- NOTE | 2021-01-19 19:30 | NUR ---
PT. SLEEPING , REPORT GIVE TO LANE MCKEON.
--- NOTE | 2021-01-19 20:30 | NUR ---
TURNED AND REPOSITIONED PATIENT.
--- NOTE | 2021-01-19 21:41 | NUR ---
PT RECEIVED ON PRVC 500 +5 f14 25% W/ 8.0 ETT SECURED VENT IS PLUGGED INTO RED OUTLET W/ ALARMS ON AND AUDIBLE WILL CONTINUE TO MONITOR AMBU IS AT BEDSIDE
--- NOTE | 2021-01-19 23:00 | NUR ---
RESTLESS AND COMBATIVE AT TIMES WHENEVER HE WOKES UP
[2021-01-20] VITALS (18 sets, daily range): BP systolic 111–156; BP diastolic 64–99
--- NOTE | 2021-01-20 00:26 | NUR ---
ETT RETRACTED TO 23 CM PER XRAY INTERP PENDING CXR FOR TUBE PLACEMENT
[2021-01-20] MEDS: DEXMEDETOMIDINE HCL 400 MCG in NACL 0.9% 96 ML IV PRN (02:39)
[2021-01-20] MEDS: LORazepam 2 MG/ML VIAL IVP PRN ×2 (02:40→09:52)
[2021-01-20] MEDS: PROPOFOL 1000 MG/100 ML PREMIX 100 ML IV PRN (02:41)
[2021-01-20 06:12] LABS: BASOPHILS % (AUTO) 0.4 % (0.0-2.0); EOSINOPHILS # (AUTO) 0.1 K/uL (0-0.4); HEMATOCRIT 42.5 % (36-52); HEMOGLOBIN 14.2 g/dL (12.0-18.0); LYMPHOCYTES # (AUTO) 0.8 K/uL (2.0-11.5); LYMPHOCYTES % (AUTO) 10.6 % (20.5-51.1); MEAN CORPUSCULAR HEMOGLOBIN 35 pg (27-31); MEAN CORPUSCULAR HGB CONC 33 g/dL (33-37); MEAN CORPUSCULAR VOLUME 103.7 fL (80-94); MONOCYTES # (AUTO) 0.9 K/uL (0.8-1.0); MONOCYTES % (AUTO) 12.3 % (1.7-9.3); NEUTROPHILS # (AUTO) 5.4 K/uL (1.8-7.7); NEUTROPHILS % (AUTO) 75.7 % (42.2-75.2); PLATELET COUNT (AUTO) 148 K/uL (140-450); RED CELL DISTRIBUTION WIDTH 13.5 % (11.6-13.7); WHITE BLOOD COUNT (AUTO) 7.2 K/uL (4.8-10.8)
[2021-01-20 06:29] LABS: ALBUMIN 2.7 g/dL (3.4-5.0); ANION GAP 11.2 (8-16); CREATININE 0.8 mg/dL (0.6-1.3); POTASSIUM 3.2 mmol/L (3.5-5.1); TOTAL BILIRUBIN 0.3 mg/dL (0.0-1.0)
[2021-01-20] MEDS: MORPHINE SULFATE 2 MG/ML SYR IVP PRN (06:57)
--- NOTE | 2021-01-20 07:30 | NUR ---
ENDORSED TO AM SHIFT RN FOR CONTINUITY OF CARE
--- NOTE | 2021-01-20 07:30 | NUR ---
RECEIVE REPORT FROM LANE INBED HOB UP 30 DEGREE ETT TO VENT ACPC FIO2 25% [id number] PEEP OF 5 O2 SAT99% IV ON RT ARM INFUSSING BABANA BAG AT 100ML/HR ARNOLD CATH DRAIN TORITO GARCIA,
[2021-01-20] MEDS: PANTOPRAZOLE 40 MG INJ VIAL IVP SCH (08:03)
[2021-01-20] MEDS: ENOXAPARIN 40 MG/0.4 ML SYR SUBQ SCH (08:04)
--- NOTE | 2021-01-20 09:30 | NUR ---
SEEN BY DR. SANFORD NO ORDER RECEIVED.
--- NOTE | 2021-01-20 10:20 | NUR ---
1020 DR. RICHTER AT BEDSIDE ,ORDER TO EXTUBATE , CALL RT TO ATTEN.
--- NOTE | 2021-01-20 10:30 | NUR ---
MD QUINN AT BEDSIDE WANTS PATIENT EXTUBATED NOW. LINDA SEWELL AT BEDSIDE. WILL FOLLOW WITH ORDER.
--- NOTE | 2021-01-20 10:35 | NUR ---
PT EXTUBATED . LINDA SEWELL AND MD RICHTER AT BEDSIDE. PLACED PT ON 2L NC. SPO2 98%. VENTILATOR AT BEDSIDE STAND BY, NO STRIDOR. WILL CONTINUE TO MONITOR PATIENT.
[2021-01-20] MEDS ORDERED: LORazepam 2 MG/ML VIAL IVP PRN (10:50)
--- NOTE | 2021-01-20 11:20 | NUR ---
PT AWAKE AND ALERT COOPERATIVE AND FOLLOW COMMAND. SOFT WRIST RESTRAIN D/C BY DR. QUINN.
--- NOTE | 2021-01-20 11:25 | NUR ---
SEEN BY DR LIU , NO NEW ORDERED RECEIVED
[2021-01-20] MEDS: chlordiazePOXIDE 25 MG CAP PO SCH ×2 (12:06→16:13)
[2021-01-20] MEDS: MULTIVITAMIN-12 10 ML, THIAMINE 100 MG, FOLIC ACID 1 MG, MAGNESIUM SULFATE 50% 2,000 MG... IV SCH ×5 (13:15)
--- NOTE | 2021-01-20 14:00 | NUR ---
01/20/21 RD FOLLOW UP COMPLETED PLEASE REFER TO NUTRITION ASSESSMENT UNDER CARE ACTIVITY FOR ESTIMATED NUTRITIONAL NEEDS. 1. RECOMMEND SWALLOW EVALUATION TO ADVANCE TO PO DIET 2. RECOMMEND ENSURE BID FOR ADDITIONAL PROTEIN AND KCAL 3. RD TO FOLLOW-UP 2-3 DAYS, HIGH RISK MELINDA MOORE, RD
--- NOTE | 2021-01-20 16:58 | NUR ---
PT. DOING WELL NO SIGN OF ANXIETY , ORAL CLEAR LIQUID TAKING WELL.
--- NOTE | 2021-01-20 17:51 | NUR ---
PT WAS SEEN FOR DYSPHAGIA. PT WAS ABLE TO SAFELY SWALLOW MS DIET WITH THIN LIQUID WITHOUT S/S OF ASPIRATION.NEEDED VERBAL CUES TO EAT SLOW. RECOMMENDATION MS DIET WITH THIN LIQUID Addendum: 01/20/[address] PT WAS ABLE SAFELY SWALLOW REGULAR DIET. RECOMMENDATION REGULAR DIET WITH THIN LIQUID
--- NOTE | 2021-01-20 18:34 | NUR ---
SOFT DIET TAKEN WELL NO SIGN OF ANXIETY NOTE.
--- NOTE | 2021-01-20 19:30 | NUR ---
[facility], REPORT GIVE TO MAYNOR MCKEON.
--- NOTE | 2021-01-20 19:31 | NUR ---
RECEIVED REPORT FROM DONATO MCKEON FOR CONTINUITY OF CARE. PT IN BED RESTING AND EATING WITH HOB ELEVATED. PT AOX4 AND ABLE TO MAKE NEEDS KNOWN. RESPIRATIONS EVEN AND UNLABORED TO ROOM AIR. ABDOMEN IS SOFT AND NON-TENDER, ACTIVE BOWEL SOUNDS NOTED. SKIN IS WARM, DRY, AND INTACT. IV ACCESS PATENT AND INTACT, BANANA BAG INFUSING WELL. PT CURRENTLY ON PRECEDEX 0.1 MCG/KG/HR. PT DENIES ANY PAIN OR DISCOMFORT AT THIS TIME. NO REQUESTS MADE. POC DISCUSSED. SAFETY MEASURES IN PLACE. WILL CONTINUE TO MONITOR.
--- NOTE | 2021-01-20 20:00 | NUR ---
VS STABLE. PT CALM AND AWAKE. PRECEDEX DRIP STOPPED. PT DENIES ANY PAIN OR DISCOMFORT AT THIS TIME. NO REQUESTS MADE. WILL CONTINUE TO MONITOR.
--- NOTE | 2021-01-20 22:25 | NUR ---
PT PROVIDED WITH SNACK AND TOOTHBRUSH REQUESTED. PT ABLE TO EAT AND WASH HIMSELF. WILL CONTINUE TO MONITOR.
[2021-01-21] VITALS (8 sets, daily range): BP systolic 102–144; BP diastolic 60–95
--- NOTE | 2021-01-21 00:16 | NUR ---
VS STABLE. PT RESTING IN BED, WATCHING TV. NO COMPLAINTS MADE AT THIS TIME. PT KEPT COMFORTABLE. CALL LIGHT WITHIN REACH, WILL CONTINUE TO MONITOR.
--- NOTE | 2021-01-21 01:56 | NUR ---
PT ASLEEP. VISIBLE CHEST RISE AND FALL NOTED. NO S/SX OF DISTRESS NOTED. SPO2 99%. SAFETY MEASURES IN PLACE. WILL CONTINUE TO MONITOR.
--- NOTE | 2021-01-21 04:12 | NUR ---
VS STABLE. PT ASSISTED TO COMMODE AND BACK TO BED SAFELY. PT DENIES ANY PAIN OR DISCOMFORT AT THIS TIME. NO REQUESTS MADE AT THIS TIME. WILL CONTINUE TO MONITOR.
--- NOTE | 2021-01-21 07:24 | NUR ---
GAVE REPORT TO IAN MCKEON FOR CONTINUITY OF CARE
--- NOTE | 2021-01-21 07:25 | NUR ---
RECEIVED BEDSIDE REPORT FROM TOOL MAKER APPRENTICE NURSE MANYOR RN, PT [id number], AWAKE ALERT ABLE TO LET NEEDS KNOWN, IV TO R FA 22G PATENT INTACT SL, R HAND 20G PATENT INTACT SL. PT TOOK OUT IV TO R AC 20G. PT ON ROOM AIR, NO SOB NOTED, SATURATING @ 99%. PT STATED WANTS TO GO HOME, NOTIFY PT TO WAIT FOR DR. INITIAL ASSESSMENT DONE, ALL SAFETY PRECAUTION MET, CALL LIGHT WITHIN REACH, WILL CONTINUE TO MONITOR.
--- NOTE | 2021-01-21 08:17 | NUR ---
PATIENT STATED WANTS TO LEAVE, HE DOES NOT WANT TO WAIT FOR THE DR. HE SAID THE DR SHOULD BE HERE ALREADY, HE DOES NOT WANT TO WAIT, REQUESTED TO TAKE THE IVS OUT, IV TAKEN OUT. PT ALERT ORIENTED X4. AMA FORM SIGNED, PT STATED DOES NOT WANT TO WAIT, WILL FINISH HIS MORNING BREAKFAST AND REQUEST TO LEAVE RIGHT AWAY.
--- NOTE | 2021-01-21 08:36 | NUR ---
PATIENT LEFT UNIT IN STABLE CONDITION, NO DISTRESS NOTED.
--- NOTE | 2021-01-21 08:50 | NUR ---
CALLED PT BROTHER REGARDING PT AMA, NO ANSWER, LEFT MESSAGE.
--- NOTE | 2021-01-21 08:56 | NUR ---
CALLED PT REGARDING MEDICATION IN PHARMACY, PER PT HE DOES NOT WANT TO TAKE IT BACK HOME, HE DOES NOT NEED THE MEDICATIONS.
--- NOTE | 2021-01-21 08:56 | NUR ---
DR ROBLES CALLED, NOTIFIED PT HAS LEFT AMA.
== END 2021-01-21 09:51 | disposition left against medical advice (07) | DRG 133 ==
LOC: MED 05:50 → MIC 11:37
PROVIDERS: ADMIT Hospitalist; ATTEND Hospitalist
PROC: 5A1945Z Respiratory Ventilation, 24-96 Consecutive Hours (ICD-10-PCS; principal; 2021-01-19)
PROC: 0BH17EZ Insertion of Endotracheal Airway into Trachea, Via Natural or Artificial Opening (ICD-10-PCS; 2021-01-19)
DX: J96.00 Acute respiratory failure, unspecified whether with hypoxia or hypercapnia (principal); J69.0 Pneumonitis due to inhalation of food and vomit; G93.40 Encephalopathy, unspecified; F10.231 Alcohol dependence with withdrawal delirium; E87.6 Hypokalemia; R44.0 Auditory hallucinations; E83.42 Hypomagnesemia; Z20.822 Contact with and (suspected) exposure to COVID-19; Z79.899 Other long term (current) drug therapy
CPT/HCPCS: 31500; 36415; 36600; 71045; 80048; 80053; 80305; 82140; 82550; 82553; 82803; 83735; 84100; 84484; 85025; 85610; 85730; 87081; 92610; 93005; 94002; 94003; 96361; 96365; 96375; 99291; A9153; C9113; G0480; G0482; J0330; J1200; J1630; J1650; J2060; J2250; J2270; J2405; J2560; J2704; J3010; J3411; J3475; J3490; Q0092

== ENCOUNTER 2021-04-08 10:54 | Inpatient (IN) | payer OTHER, SELFPAY ==
[~2021-04-08] VITALS: Ht 180.3 cm; Wt 78.5 kg
[2021-04-08 11:11] VITALS: BP 146/108
--- NOTE | 2021-04-08 11:16 | NUR ---
Patient ambulated with steady gait to bed 1.
[2021-04-08] MEDS ORDERED: NACL 0.9% 1,000 ML IV ONE (11:35)
[2021-04-08] MEDS ORDERED: LORazepam 2 MG/ML VIAL IVP ONE ×2 (11:35→13:15)
--- NOTE | 2021-04-08 11:41 | NUR ---
26 YEARS OLD MALE WITH HX OF ETOH,ANXIETY PRESENTS TO ER WITH COUGH FOR 1 WEEK DENIES NAUSEA VOMITING DIARRHEA.
[2021-04-08 12:04] LABS: BASOPHILS % (AUTO) 0.4 % (0.0-2.0); EOSINOPHILS % (AUTO) 0.1 % (0.0-4.0); HEMATOCRIT 44.4 % (36-52); HEMOGLOBIN 15.6 g/dL (12.0-18.0); LYMPHOCYTES # (AUTO) 0.7 K/uL (2.0-11.5); LYMPHOCYTES % (AUTO) 7.2 % (20.5-51.1); MEAN CORPUSCULAR HEMOGLOBIN 34 pg (27-31); MEAN CORPUSCULAR HGB CONC 35 g/dL (33-37); MEAN CORPUSCULAR VOLUME 97.6 fL (80-94); MONOCYTES # (AUTO) 1.3 K/uL (0.8-1.0); MONOCYTES % (AUTO) 13.3 % (1.7-9.3); NEUTROPHILS # (AUTO) 7.9 K/uL (1.8-7.7); PLATELET COUNT (AUTO) 153 K/uL (140-450); RED BLOOD CELL COUNT(AUTO) 4.55 MIL/uL (4.20-6.10); RED CELL DISTRIBUTION WIDTH 13.1 % (11.6-13.7)
[2021-04-08 12:18] LABS: ALBUMIN 3.8 g/dL (3.4-5.0); ANION GAP 13.8 (8-16); CARBON DIOXIDE 27.8 mmol/L (21-32); CREATININE 0.7 mg/dL (0.6-1.3); POTASSIUM 3.6 mmol/L (3.5-5.1); TOTAL BILIRUBIN 0.6 mg/dL (0.0-1.0)
[2021-04-08 12:19] LABS: BARBITURATE, URINE NEGATIVE ng/ml (NEG <=200); BENZODIAZEPINE, URINE NEGATIVE ng/mL (NEG <=200); CANNABINOID, URINE NEGATIVE ng/mL (NEG <=50); COCAINE, URINE NEGATIVE ng/mL (NEG <=300); OPIATE, URINE NEGATIVE ng/mL (NEG <=2000); PHENCYCLIDINE SCREEN,URINE NEGATIVE ng/mL (NEG <=25)
--- NOTE | 2021-04-08 13:23 | NUR ---
PATIENT VERY ANXIOUS,SWEATY, TACHY DR PIEDRA NOTIFIED.
[2021-04-08] MEDS ORDERED: ACETAMINOPHEN 325 MG TAB PO PRN (13:50)
[2021-04-08] MEDS ORDERED: ONDANSETRON 4 MG/2 ML VIAL IVP PRN (13:50)
[2021-04-08] MEDS ORDERED: MAGNESIUM OXIDE 400 MG TAB PO PRN (13:50)
[2021-04-08] MEDS ORDERED: POTASSIUM CHLORIDE 10 MEQ TABER PO PRN (13:50)
[2021-04-08] MEDS ORDERED: HYDROcodone/APAP 5/325 MG 1 TAB TAB PO PRN (13:50)
[2021-04-08 14:00] LABS: APPEARANCE,URINE CLEAR (CLEAR); BILIRUBIN,URINE NEGATIVE (NEGATIVE); BLOOD, URINE TRACE-I (NEGATIVE); LEUKOCYTE ESTERASE ,URINE NEGATIVE (NEGATIVE); NITRITE, URINE NEGATIVE (NEGATIVE); UGLUCOSE NEGATIVE (NEGATIVE)
[2021-04-08] MEDS: NACL 0.9% 1,000 ML IV SCH ×2 (14:07→21:29)
[2021-04-08 14:22] LABS: COLOR,URINE YELLOW (YELLOW)
[2021-04-08 14:37] LABS: RBC,URINE 0-5 /HPF (0-5); WBC,URINE NONE SEEN /HPF (0-5)
--- NOTE | 2021-04-08 15:27 | NUR ---
PATIENT REASSESS SLEEPING, NO ACUTE RESP DISTRESS, NO TREMORS, NO SEIZURE SAFETY MAINTAINED AWAITING FOR ADMIT BED.
[2021-04-08] MEDS: chlordiazePOXIDE 25 MG CAP PO SCH (17:15)
--- NOTE | 2021-04-08 18:02 | NUR ---
PATIENT SLEEPING DENIES PAIN, NO SOB NO CP VITAL STABLE WILL CONTINUE TO MONITOR.
[2021-04-08] MEDS: LORazepam 1 MG TAB PO PRN ×3 (19:31→23:11)
--- NOTE | 2021-04-08 21:09 | NUR ---
Patient will be admitted to care of DR SARAVIA. Admited to [facility]. Will go to room 114A. Belongings list completed. Report to LINDA HUSSEIN.
[2021-04-08 21:10] VITALS: BP 168/95
--- NOTE | 2021-04-08 21:30 | NUR ---
PATIENT ADMITTED TO THE UNIT FROM ED. PATIENT AOX4. INSPIRATORY WHEEZING NOTED. O2 SAT 96% ON ROOM AIR. MILD TREMORS NOTED TO BILATERAL HANDS. PATIENT PLACED ON TELE MONITORING. BED LOWERED WITH CALL LIGHT WITHIN REACH.
[2021-04-08] MEDS ORDERED: PNEUMOCOCCAL VACCINE 23 MCG/0.5 ML VIAL IMVAC SCH (22:40)
[2021-04-08] MEDS ORDERED: BENZOCAINE/MENTHOL 1 LOZ MM PRN (22:55)
[2021-04-08] MEDS: ALBUTEROL SULFATE/IPRATROPIU 3 ML SOL IH PRN (23:42)
[2021-04-09] VITALS: BP 158/95
[2021-04-09] MEDS ORDERED: diphenhydrAMINE 50 MG/ML VIAL IVP ONE (00:30)
[2021-04-09] MEDS ORDERED: methylPREDNISolone SS 125 MG/2 ML VIAL IVP SCH (00:30)
[2021-04-09] MEDS ORDERED: RACEPINEPHRINE 2.25% 13.5 MG/0.5 ML NEBU INH SCH (01:55)
[2021-04-09] MEDS ORDERED: RACEPINEPHRINE 2.25% 13.5 MG/0.5 ML NEBU INH ONE (02:03)
--- NOTE | 2021-04-09 02:03 | NUR ---
PATIENT STILL HAVING STRIDOR AFTER ADMINISTRATION OF BENADRYL AND SOLUMEDROL. UPDATED DR LANGLEY OF PATIENT'S STATUS. ORDER RECEIVED TO ADMINISTER RACEMIC EPI BREATHING TX
--- NOTE | 2021-04-09 02:17 | NUR ---
R. EPI Tx WAS GIVEN FOR STRIDOR PT WAS EDUCATED ON MED AND TOLERATED WELL WILL CONTINUE TO MONITOR ORDER IS IN BUT MED WAS NOT SCANNED IT DOES NOT GENERATE IN eMAR
--- NOTE | 2021-04-09 02:25 | NUR ---
STRIDOR IMPROVED POST R EPI Tx BUT IS STILL AUDIBLE WILL CONTINUE TO MONITOR
[2021-04-09 04:00] VITALS: BP 144/93
[2021-04-09] MEDS: ALBUTEROL SULFATE/IPRATROPIU 3 ML SOL IH PRN (04:52)
--- NOTE | 2021-04-09 07:05 | NUR ---
PT ALERT SITTING ON HIS BED RT AT BED SIDE. GAVE REPORT TO TAIL BOARD MAN NURSE FOR CONTINUITY OF CARE. ALL SAFETY MEASURE IN PLACE.
--- NOTE | 2021-04-09 07:21 | NUR ---
RECEIVED REPORT FROM PLANNING ASSISTANT PT ON STABLE CONDITION. IV SITE ON RIGHT HAND SHIREEN 20. SATURATION AT 96 % AT ROOM AIR UNLABORED BUT NOTED WITH STRIDOR. ALL SAFETY MEASURE IN PLACE. CALL LIGHT WITH IN EASY REACH.
--- NOTE | 2021-04-09 07:32 | NUR ---
PT REPORT GIVEN TO AM NURSE. PT ENDORSED IN STABLE CONDITION
[2021-04-09 08:00] VITALS: BP 146/96
--- NOTE | 2021-04-09 08:19 | NUR ---
PATIENT HAS BEEN SCREENED AND CATEGORIZED LOW NUTRITION RISK. PATIENT WILL BE SEEN WITHIN 7 DAYS OF ADMISSION. 04/15/[address]
[2021-04-09] MEDS ORDERED: ALBUTEROL SULFATE/IPRATROPIU 3 ML SOL IH PRN (08:50)
[2021-04-09] MEDS: chlordiazePOXIDE 25 MG CAP PO SCH ×3 (09:15→17:00)
[2021-04-09] MEDS: FOLIC ACID 1 MG TAB PO SCH (09:15)
[2021-04-09] MEDS: THIAMINE 100 MG TAB PO SCH (09:15)
[2021-04-09] MEDS: MULTIVITAMIN 1 TAB PO SCH (09:15)
[2021-04-09] MEDS: ENOXAPARIN 40 MG/0.4 ML SYR SUBQ SCH (09:16)
[2021-04-09] MEDS: LORazepam 1 MG TAB PO PRN ×4 (09:17→22:20)
--- NOTE | 2021-04-09 09:30 | NUR ---
PT GIVEN ALL DUE MEDICATION AND GIVEN ATIVAN DUE TO ELEVATED HR AND ANXIETY.
--- NOTE | 2021-04-09 11:30 | NUR ---
PT ON BED ON STABLE CONDITION WATCHING TV. ALL SAFETY MEASURE IN PLACE. CALL LIGHT WITH IN EASY REACH.
[2021-04-09 12:00] VITALS: BP 135/91
--- NOTE | 2021-04-09 13:39 | NUR ---
PT HEART RATE AND ALSO NOTED WITH ANXIETY MEDICATED ORDERED.
--- NOTE | 2021-04-09 14:23 | NUR ---
PT CALLED THAT HE GOING TO HAVE MEETING. WHEN WE CHECK ON HIM PT REMOVED O2 STRIP AGAIN AND KEEP ON TURNING ON OFF THE O2. EXPLAINED THE RISK AND BENEFIT OF REMOVING AND TURNING ON OFF OF O2.
--- NOTE | 2021-04-09 14:23 | NUR ---
CHECKED ON PATIENT. PT SITTING IN BED. SPO2 98% ON ROOM AIR. NO SOB OR DISTRESS NOTED.
--- NOTE | 2021-04-09 14:28 | NUR ---
PT CALLED AGAIN AND WHEN CHECK HE SAID HE BROKE THE O2 LEAD. CHANGE AGAIN AND PATIENT IS SATURATING AT 94 AT ROOM AIR. ALL SAFETY MEASURE IN PLACE. CALL LIGHT WITH IN EASY REACH.
--- NOTE | 2021-04-09 14:51 | NUR ---
I GOT CALL FROM ADMITTING TO VERIFY ADDRESS OF THE PT WHEN I AND ASK HIM NOTED PT REMOVED HIS O2 STRIP AGAIN AND KEEP ON MOVING IV. ENCOURAGED AND EXPLAIN NOT TO DO IT. AND HE SAID HE WILL.
[2021-04-09] MEDS: NACL 0.9% 1,000 ML IV SCH (14:52)
--- NOTE | 2021-04-09 15:24 | NUR ---
PT CALLED STATED THAT HIS IV KEPT BEEPING. I WENT INTO PT ROOM, PT STATED HE THOUGHT HIS IV CATHETER WAS MAKING NOISES. ASSURED PT THAT HIS IV CATHETER WAS NOT BEEPING. PT THEN ATTEMPTED TO TURN OFF HIS IV PUMP AND WHEN I ASKED HIM WHY, HE STATED HE JUST WANTED TO TURN IT OFF. ADVISED PT TO NOT TURN OFF/ON HIS IV PUMP. PT ALSO CONTINUES TO REMOVE PULSE OX. EDUCATED PT ON IMPORTANCE OF KEEPING PULSE OX ON. PT VERBALIZED AN UNDERSTANDING OF ALL INFORMATION PROVIDED. WILL CONTINUE TO MONITOR.
[2021-04-09 16:00] VITALS: BP 129/94
--- NOTE | 2021-04-09 16:06 | NUR ---
DC PLANNING: DC PLANNING: PATIENT PRSENTED WITH COUGH, CP AND SOB, ALSO ETOH WITHDRAWL. B/P 146/108, PATIENT STARTED ON THIAMINE AND FOLATE, SOLU MEDROL X1 AND DUO NEBS. PATIENT NOTED TO HAVE AN EPISODE OF STRIDOR, EPI GIVEN X 1, PATIENT ALSO WITH WHEEZING, CXR NEGATIVE FOR ACUTE FINDINGS. CM SPOKE WITH PATIENT AT BEDSIDE, PATIENT UNABLE TO SPEAK ABOVE A WHISPER. 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 DOES NOT HAVE FAMILY SUPPORT HE STATES THAT THEY GIVE HIM ANXIETY. HE SEES HIS PCP NEEDED, AND IS PLANNING ON TRYING AA AGAIN FOR ALCOHOL CESSATION. AFTER THIS INFORMATION WAS GIVEN THE PATIENT DID NOT ANSWER QUESTIONS ASKED APPROPRIATELY, GAVE ANSWERS NOT RELATED TO THE QUESTION ASKED. DC PLAN AT THIS TIME IS FOR THE PATIENT TO RETURN TO HIS RESIDENCE, CM WILL FOLLOW FOR NEEDS.
--- NOTE | 2021-04-09 19:15 | NUR ---
RECEIVED REPORT FROM DAY SHIFT FOR CONTINUITY OF CARE.PT A&O X 3.PT ON ROOM AIR.O2 SATURATION AT 96%.BREATHING EQUAL AND UNLABORED.SKIN WARM, DRY AND INTACT. ALL SAFETY MEASURES IN PLACE. CALL LIGHT WITH IN REACH.WILL CONTINUE TO MONITOR.
[2021-04-09 20:00] VITALS: BP 158/98
--- NOTE | 2021-04-09 21:00 | NUR ---
PT RESTLESS AND ANXIOUS AND WAS IN THE HALLWAY.ASKED THE PT TO GO BACK INSIDE HIS ROOM.PT ALSO REMOVED HIS IV LINE AND TELE MONITOR. PRN ATIVAN GIVEN. WILL INSERT ANOTHER LINE AND ATTACHED TELE MONITOR .PT TOLERATED WELL. WILL CONTINUE TO MONITOR.
--- NOTE | 2021-04-09 22:30 | NUR ---
PT STILL RESTLESS. GIVEN PRN ATIVAN AGAIN.INSERTED IV ON RIGHT FA G20. PT TOLERATED WELL. ALL PRECAUTIONS IN PLACE. WILL CONTINUE TO MONITOR.
[2021-04-09 22:42] LABS: ALBUMIN 3.9 g/dL (3.4-5.0); ANION GAP 16.9 (8-16); CARBON DIOXIDE 26.7 mmol/L (21-32); CREATININE 0.8 mg/dL (0.6-1.3); POTASSIUM 3.6 mmol/L (3.5-5.1); TOTAL BILIRUBIN 0.8 mg/dL (0.0-1.0)
[2021-04-10] VITALS: BP 128/91
[2021-04-10] MEDS: LORazepam 1 MG TAB PO PRN ×3 (00:07→08:38)
--- NOTE | 2021-04-10 00:10 | NUR ---
PT IS ANXIOUS AND IS TELLING ME THAT HE IS SEEING SOMETHING FROM OUTSIDE. GIVEN PRN ATIVAN. WILL CONTINUE TO MONITOR.
--- NOTE | 2021-04-10 02:40 | NUR ---
PT REMOVED HIS TELE MONITOR AGAIN AND WAS RESTLESS. PRN MEDICATION GIVEN. WILL CONTINUE TO MONITOR.
[2021-04-10] MEDS: NACL 0.9% 1,000 ML IV SCH (03:20)
[2021-04-10 04:00] VITALS: BP 125/86
--- NOTE | 2021-04-10 06:23 | NUR ---
PT STABLE. NO ACUTE EVENTS THROUGHOUT THE NIGHT. PT NOT IN ANY DISTRESS. ALL NEEDS ATTENDED. PT HAS NO COMPLAIN AT THIS TIME.CALL LIGHT WITHIN REACH. WILL ENDORSE TO AM SHIFT NURSE.
[2021-04-10 07:12] LABS: ALBUMIN 3.4 g/dL (3.4-5.0); CARBON DIOXIDE 27.3 mmol/L (21-32); CREATININE 0.8 mg/dL (0.6-1.3); MAGNESIUM 1.8 mg/dL (1.8-2.4); POTASSIUM 3.3 mmol/L (3.5-5.1); TOTAL BILIRUBIN 0.8 mg/dL (0.0-1.0)
--- NOTE | 2021-04-10 07:34 | NUR ---
ENDORSED TO AM SHIFT NURSE FOR CONTINUITY OF CARE.PT STABLE.
--- NOTE | 2021-04-10 07:38 | NUR ---
RECEIVED REPORT FROM MEDICAL ASSEMBLY FOR CONTINUITY OF CARE. PT A&O X 3. PT ON ROOM AIR. RESPIRATIONS EVEN AND UNLABORED. O2 SATURATION AT 96%. IV ON RFA 20 G INTACT AND PATENT. SALINE LOCKED. SKIN WARM, DRY AND INTACT. DENIES PAIN. PLAN OF CARE DISCUSSED. ALL SAFETY MEASURES IN PLACE. CALL LIGHT WITH IN REACH. WILL CONTINUE TO MONITOR.
[2021-04-10 08:00] VITALS: BP 119/89
[2021-04-10] MEDS: chlordiazePOXIDE 25 MG CAP PO SCH (08:27)
[2021-04-10] MEDS: MULTIVITAMIN 1 TAB PO SCH (08:27)
[2021-04-10] MEDS: THIAMINE 100 MG TAB PO SCH (08:27)
[2021-04-10] MEDS: ENOXAPARIN 40 MG/0.4 ML SYR SUBQ SCH (08:27)
[2021-04-10] MEDS: FOLIC ACID 1 MG TAB PO SCH (08:27)
--- NOTE | 2021-04-10 09:34 | NUR ---
PATIENT ELOPED AND LEFT THE UNIT WITH IV CATHETER AND GLUE BONE CRUSHER IN PLACE. SECURITY CAUGHT UP TO THE PATIENT IN [facility]. SECURITY WAS ABLE TO RETRIEVE GLUE BONE CRUSHER BUT STATED THAT HE WAS UNABLE TO DETERMINE IF PATIENT HAD AN IV CATHETER. NOTIFIED MD AND IS AWARE THAT PATIENT LEFT THE UNIT.
--- NOTE | 2021-04-10 10:17 | NUR ---
INCIDENT REPORT COMPLETED
[2021-04-10] MEDS ORDERED: LIB5 PO (17:31)
[2021-04-10] MEDS ORDERED: NALO4SPR NS (17:31)
[2021-04-10] MEDS ORDERED: ALBU0.0912 IH (17:31)
[2021-04-10] MEDS ORDERED: BENZ1LOZ98 PO (17:31)
[2021-04-10] MEDS ORDERED: PRED20TA5 PO (17:31)
== END 2021-04-10 09:20 | disposition left against medical advice (07) | DRG 770 ==
LOC: MED 10:54 → MTU 13:51
PROVIDERS: ADMIT Student in an Organized Health Care Education/Training Program; ATTEND Student in an Organized Health Care Education/Training Program
DX: F10.139 Alcohol abuse with withdrawal, unspecified (principal); F41.9 Anxiety disorder, unspecified; I10 Essential (primary) hypertension; Z20.822 Contact with and (suspected) exposure to COVID-19; R00.0 Tachycardia, unspecified; J02.9 Acute pharyngitis, unspecified; Z79.899 Other long term (current) drug therapy; Z87.81 Personal history of (healed) traumatic fracture
CPT/HCPCS: 36415; 71045; 80048; 80053; 80305; 81001; 83605; 83735; 83880; 84484; 85025; 87040; 87081; 87804; 93005; 94640; 96361; 96374; 96375; 99291; G0482; J1200; J1650; J2060; J2930; Q0092; U0003

== ENCOUNTER 2021-04-10 13:16 | Emergency (ER) | payer OTHER, SELFPAY ==
[~2021-04-10] VITALS: Ht 185.4 cm; Wt 79.4 kg
[2021-04-10 13:52] VITALS: BP 130/76
[2021-04-10] MEDS ORDERED: DICYCLOMINE HCL LIQUID 20 MG, ALUMINUM HYD/MAG/SIMETHICONE 30 ML, LIDOCAINE VISCOUS 2% ... PO ONE ×3 (14:10)
[2021-04-10] MEDS ORDERED: DEXAMETHASONE 10 MG/ML VIAL IM ONE (14:10)
[2021-04-10] MEDS ORDERED: DICYCLOMINE HCL LIQUID 10 MG/5 ML UDC ONE (15:07)
[2021-04-10] MEDS ORDERED: ALUMINUM HYD/MAG/SIMETHICONE 30 ML UDC ONE (15:07)
[2021-04-10] MEDS ORDERED: ALBUTEROL SULFATE/IPRATROPIU 3 ML SOL IH ONE ×3 (15:45→16:55)
--- NOTE | 2021-04-10 15:56 | NUR ---
pt to er bed 3
--- NOTE | 2021-04-10 16:02 | NUR ---
RT BEDSIDE PROVIDING BREATHING TX
--- NOTE | 2021-04-10 16:21 | NUR ---
SARINA PEREYRA COLLECTED AND WALKED OVER TO LAB BY RN STUDENT ROBERT
--- NOTE | 2021-04-10 16:21 | NUR ---
CONSENT FOR CT CONTRAST SIGNED AND PLACED INTO PT CHART
--- NOTE | 2021-04-10 16:38 | NUR ---
PT TAKEN TO CT VIA W/C
--- NOTE | 2021-04-10 16:38 | NUR ---
26 Y MALE BIB SELF FOR RECHECK. PT HAS CURRENT C/O SORE THROAT, COUGH, CHEST PAIN X 2 MONTHS. PT WAS SEEN IN AUGUST 2020 AND INTUBATED DUE TO ALCOHOL WITHDRAWAL. PT STATED SINCE HE HAS BEEN DISCHARGE AND EXTUBATED HE HAS BEEN EXPERINCING A SORE THROAT, SOB, AND COUGH. UPON ASSESSMENT PT IS EXPERIENCING WHEEZING BILATERALLY THROUGHOUT. PT ALSO HAS RASPY VOICE AT THIS TIME. PT WAS ALSO LAST SEEN HERE 04/08/21 FOR ALCOHOL WITHDRAWAL. PMH: ALCOHOL DRINKING NKA
--- NOTE | 2021-04-10 16:55 | NUR ---
PT RETURNED TO BED [address] VIA W/C
--- NOTE | 2021-04-10 17:16 | NUR ---
RT BEDSIDE WITH PATIENT PROVIDING BREATHING TX
[2021-04-10] MEDS ORDERED: ALBU0.0912 IH (17:31)
[2021-04-10] MEDS ORDERED: LIB5 PO (17:31)
[2021-04-10] MEDS ORDERED: NALO4SPR NS (17:31)
[2021-04-10] MEDS ORDERED: PRED20TA5 PO (17:31)
[2021-04-10] MEDS ORDERED: BENZ1LOZ98 PO (17:31)
[2021-04-10 17:40] VITALS: BP 138/72
--- NOTE | 2021-04-10 17:41 | NUR ---
Patient discharged with v/s stable. Written and verbal after care instructions given and explained. Patient alert, oriented and verbalized understanding of instructions. Ambulatory with steady gait. All questions addressed prior to discharge. ID band removed. Patient advised to follow up with PMD. Rx of ALBUTEROL, BENZOCAINE/MENTHOL, LIBRIUM, NARCAN, AND PREDNISONE given. Patient educated on indication of medication including possible reaction and side effects. Opportunity to ask questions provided and answered.
== END 2021-04-10 17:41 | disposition home or self-care (01) ==
LOC: MED 13:16
DX: J38.7 Other diseases of larynx (principal); Z20.822 Contact with and (suspected) exposure to COVID-19; J40 Bronchitis, not specified as acute or chronic; F10.10 Alcohol abuse, uncomplicated; R03.0 Elevated blood-pressure reading, without diagnosis of hypertension; F12.90 Cannabis use, unspecified, uncomplicated; Z79.899 Other long term (current) drug therapy
CPT/HCPCS: 70360; 70491; 71045; 93005; 94640; 94760; 96372; 99285; J1100; Q9967; U0003